=== PATIENT | male | born 1955 | race Caucasian/White ===

== ENCOUNTER 2025-06-25 23:31 | Emergency (ER) | payer OTHER ==
[~2025-06-25] VITALS: Ht 180.3 cm; Wt 90.7 kg
[2025-06-26 02:03] VITALS: BP 131/88; TEMP 98; O2SAT 98
== END 2025-06-26 02:03 | disposition home or self-care (01) ==
LOC: ER 23:40
DX: L76.22 Postprocedural hemorrhage of skin and subcutaneous tissue following other procedure (principal); I48.91 Unspecified atrial fibrillation; M10.9 Gout, unspecified; Z79.01 Long term (current) use of anticoagulants; Z96.611 Presence of right artificial shoulder joint; Z98.890 Other specified postprocedural states
CPT/HCPCS: 99282; 12002; A6403